=== PATIENT | male | born 1950 | race Caucasian/White ===

== ENCOUNTER 2023-01-11 13:36 | Outpatient (REF) | payer OTHER, SELFPAY ==
--- NOTE | 2023-01-11 10:45 | EMG_ITS ---
Left median and ulnar motor and sensory studies were performed. Left radial sensory study was performed. Paraspinal muscles were tested with a needle. IMPRESSION: 1. 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 2. Mild left ulnar neuropathy across cubital tunnel. MD JESSE Tirado/JENNYFER / [id number]
== END 2023-01-11 13:37 | disposition home or self-care (01) ==
LOC: HO.NEURO 13:36
PROVIDERS: PCP Internal Medicine Geriatric Medicine; Visit Provider Internal Medicine Geriatric Medicine
DX: R20.0 Anesthesia of skin (principal); R20.2 Paresthesia of skin
CPT/HCPCS: 95886; 95909

== ENCOUNTER 2023-03-13 11:46 | Outpatient (REF) | payer OTHER, SELFPAY ==
--- NOTE | ~2023-03-13 | XR_ITS ---
EXAMINATION: XR LUMBOSACRAL SPINE CLINICAL INFORMATION: Fall with hip and back pain COMPARISON: None available. TECHNIQUE: Three views of the lumbosacral spine. FINDINGS: No fracture or subluxation. Vertebral body height and alignment maintained. Diffuse disc space narrowing with endplate osteophytes and vacuum disc phenomenon. Facet arthropathy at the lower lumbar spine. The sacroiliac joints appear symmetric. The sacrum appears intact. Normal bowel gas pattern. XR/XR lumbar spine 2-3V IMPRESSION: No acute fracture or malalignment. Moderate multilevel degenerative changes.
--- NOTE | ~2023-03-13 | XR_ITS ---
EXAMINATION: XR BILATERAL HIPS WITH AP PELVIS CLINICAL INFORMATION: Fall with bilateral hip pain COMPARISON: None available. TECHNIQUE: 2 views of each hip FINDINGS: There is no fracture or dislocation. The hips are well aligned. Mild joint space narrowing of both hips with subchondral sclerosis and small osteophytes. The visualized pelvis is intact. The pubic symphysis is well aligned. Vascular calcifications are noted. Nonobstructive bowel gas pattern. XR/XR hips TOD min 3V IMPRESSION: No fracture or malalignment. Mild degenerative changes of both hips.
== END 2023-03-13 11:47 | disposition home or self-care (01) ==
LOC: HO.XRAY 11:46
PROVIDERS: Absent Provider Internal Medicine Geriatric Medicine; PCP Internal Medicine Geriatric Medicine; Visit Provider Registered Nurse
DX: M79.18 Myalgia, other site (principal); M25.551 Pain in right hip; M25.552 Pain in left hip; W10.0XXD Fall (on)(from) escalator, subsequent encounter
CPT/HCPCS: 72100; 73522

== ENCOUNTER 2023-08-28 11:29 | Outpatient (REF) | payer OTHER, SELFPAY ==
[2023-08-28 14:10] LABS: Anion Gap 11 (12-20); Blood Urea Nitrogen 17 mg/dL (9-16); Carbon Dioxide 28 mmol/L (22-29); Chloride 104 mmol/L (96-108); Estimated Glomerular Filt Rate > 60; Glucose Random 174 mg/dL (60-115); Sodium 139 mmol/L (135-145)
[2023-08-28 14:12] LABS: HIV AB/AG Nonreactive (Nonreactive); HIV Num 1 0.05 S/CO (0.00-0.99)
== END 2023-08-28 11:30 | disposition home or self-care (01) ==
LOC: HO.HHCL 11:29
PROVIDERS: Visit Provider Internal Medicine Geriatric Medicine
DX: E11.9 Type 2 diabetes mellitus without complications (principal); Z11.4 Encounter for screening for human immunodeficiency virus [HIV]
CPT/HCPCS: 36415; 80048; 87389

== ENCOUNTER 2023-11-01 13:10 | Outpatient (REF) | payer OTHER, SELFPAY ==
--- NOTE | ~2023-11-01 | XR_ITS ---
EXAMINATION: XR BILATERAL HIPS WITH AP PELVIS CLINICAL INFORMATION: Status post fall 11/06/2023 COMPARISON: None available. TECHNIQUE: AP view of the pelvis and single views of each hip were obtained. FINDINGS: No fracture. Hip joint spaces are maintained. Alignment is anatomic. Sacroiliac joints and pubic symphysis are normal. Extensive vascular calcification is seen. There is degenerative disc disease at L4-L5. XR/XR hip BI w PEL1V IMPRESSION: No acute bony abnormality.
== END 2023-11-01 13:11 | disposition home or self-care (01) ==
LOC: HO.HHCX 13:10
PROVIDERS: Visit Provider Registered Nurse
DX: M79.18 Myalgia, other site (principal); M51.36 Other intervertebral disc degeneration, lumbar region; Z91.81 History of falling
CPT/HCPCS: 73521

== ENCOUNTER 2023-11-27 11:23 | Outpatient (REF) | payer OTHER, SELFPAY ==
[2023-11-27 13:19] LABS: MANUAL DIFF FLAG NO
[2023-11-27 13:36] LABS: Basophils Percent Auto 0.6 % (0-2); Eosinophils Absolute Auto 0.1 X10*3/uL (0.0-0.4); Eosinophils Percent Auto 3.3 % (0-4); Hematocrit 42.5 % (42.0-52.0); Hemoglobin 14.2 g/dl (14.0-18.0); Imm Gran Abs Auto 0.01 X10*3/uL (0.00-0.03); Imm Gran Pct Auto 0.3 % (0.0-0.4); Lymphocytes Absolute Auto 0.9 X10*3/uL (1.2-4.9); Lymphocytes Percent Auto 27.3 % (20-40); Mean Corpuscular HGB Conc 33.4 g/dl (31.0-36.0); Mean Corpuscular Hemoglobin 27.7 pg (27.0-33.0); Mean Corpuscular Volume 82.8 fL (80.0-98.0); Mean Platelet Volume 10.4 fL (9.4-12.4); Monocytes Absolute Auto 0.5 X10*3/uL (0.1-1.2); Monocytes Percent Auto 14.5 % (2-11); Neutrophils Absolute Auto 1.8 x10*3/uL (2.0-8.3); Platelet Count 207 X10*3/uL (160-400); Red Blood Count 5.13 X10*6/uL (4.60-5.80); Red Cell Distribution Width 13.2 % (11.0-16.0); White Blood Count 3.3 X10*3/uL (4.8-10.8)
[2023-11-27 14:04] LABS: Alanine Aminotransferase 17 U/L (0-40); Albumin Level 4.3 g/dL (3.5-5.0); Alkaline Phosphatase 86 U/L (39-117); Anion Gap 10 (12-20); Aspartate Amino Transferase 16 U/L (5-37); Bilirubin Total 0.5 mg/dL (0.0-1.0); Blood Urea Nitrogen 19 mg/dL (9-16); Calcium 9.2 mg/dL (8.4-10.2); Carbon Dioxide 26 mmol/L (22-29); Chloride 105 mmol/L (96-108); Estimated Glomerular Filt Rate > 60; Glucose Random 277 mg/dL (60-115); Potassium 4.1 mmol/L (3.3-5.1); Sodium 137 mmol/L (135-145); Total Protein 6.8 g/dL (6.5-8.0)
[2023-11-27 14:11] LABS: TSH reflex Free T4 1.16 uIU/mL (0.32-4.0)
[2023-11-28 05:49] LABS: HIV AB/AG Nonreactive (Nonreactive); HIV Num 1 0.05 S/CO (0.00-0.99)
== END 2023-11-27 11:24 | disposition home or self-care (01) ==
LOC: HO.HHCL 11:23
PROVIDERS: Visit Provider Internal Medicine Geriatric Medicine
DX: E11.59 Type 2 diabetes mellitus with other circulatory complications (principal); I25.10 Atherosclerotic heart disease of native coronary artery without angina pectoris; R63.4 Abnormal weight loss
CPT/HCPCS: 36415; 80053; 84443; 85025; 87389

== ENCOUNTER 2024-06-06 10:02 | Outpatient (REF) | payer OTHER, SELFPAY ==
[2024-06-06 12:09] LABS: Prostate Specific Antigen 0.27 ng/mL (<0.05-4.0)
[2024-06-11 12:38] LABS: Testosterone, Total 490 ng/dL (250-1100)
== END 2024-06-06 10:03 | disposition home or self-care (01) ==
LOC: HO.HHCL 10:02
PROVIDERS: Visit Provider Internal Medicine Geriatric Medicine
DX: Z12.5 Encounter for screening for malignant neoplasm of prostate (principal); R68.82 Decreased libido
CPT/HCPCS: 36415; 84153; 84403

== ENCOUNTER 2024-08-28 10:52 | Outpatient (REF) | payer OTHER, SELFPAY ==
[2024-08-28 13:58] LABS: Alanine Aminotransferase 21 U/L (0-40); Albumin Level 4.4 g/dL (3.5-5.0); Alkaline Phosphatase 68 U/L (39-117); Anion Gap 12 (12-20); Aspartate Amino Transferase 26 U/L (5-37); Bilirubin Total 0.6 mg/dL (0.0-1.0); Blood Urea Nitrogen 21 mg/dL (9-16); Calcium 9.5 mg/dL (8.4-10.2); Carbon Dioxide 27 mmol/L (22-29); Chloride 105 mmol/L (96-108); Cholesterol 118 mg/dL (<200); Estimated Glomerular Filt Rate > 60; Glucose Random 161 mg/dL (60-115); HDL Cholesterol 43 mg/dL (>40); LDL Cholesterol Calculated 59 mg/dL (<100); Potassium 4.1 mmol/L (3.3-5.1); Sodium 140 mmol/L (135-145); Total Protein 6.7 g/dL (6.5-8.0); Triglycerides 82 mg/dL (<150)
[2024-08-28 14:28] LABS: Creatinine Urine 82.11 mg/dL; Microalbum/Creatinine Ratio Ur 30.4 ug/mg cr (<30)
== END 2024-08-28 10:53 | disposition home or self-care (01) ==
LOC: HO.HHCL 10:52
PROVIDERS: Visit Provider Internal Medicine Geriatric Medicine
DX: E11.59 Type 2 diabetes mellitus with other circulatory complications (principal)
CPT/HCPCS: 36415; 80053; 80061; 82043; 82570

== ENCOUNTER 2025-05-27 09:09 | Outpatient (AMB) | payer OTHER, SELFPAY ==
--- NOTE | 2025-05-27 09:27 | A.OFFVIS_ITS ---
Vital Signs 05/27/25 09:28 Height 5 ft 8 in Weight 145 lb BMI 22.0 BP 163/76 H Blood Pressure Location Rt brachial Position Sitting Respiration 16 Pulse 65 Pulse Source Pulse Oximeter Pulse Oximetry (%) 97 Oxygen Delivery Method Room Air Intake Visit Reasons: CHRONIC BILATERAL LOW BACK PAIN Chemical Plant Operator Supervisor Required: Yes Chemical Plant Operator Supervisor Name: Vanesa Cano [phone] Accompanied by: Self / Same As Patient Allergies No Known Allergies Allergy (Verified 05/27/25 09:30) HPI Comments Details: The patient is a 74-year-old male presenting with chronic low back pain. The pain has been persistent for many years, initially localized to the lower back and now radiating to the right leg. The patient reports numbness and tingling in the right foot, which exacerbates with walking and alleviates with rest. Denies red flag symptoms including new loss of bowel, bladder or saddle anesthesia. The patient underwent back surgery approximately 14 to 15 years ago in [place], [place]. He has not engaged in physical therapy for several years and currently uses oxycodone for pain management, which provides temporary relief. Patient also taking Tylenol and ibuprofen as needed but pain persists. - Onset: Pain has been present for many years. - Quality: Radiating pain from the lower back to the right leg. - Location: Middle of the lower back, radiating to the right leg and foot. - Exacerbating factors: Walking increases pain. - Relieving factors: Rest provides some relief. - Affect: Pain impacts daily activities, requiring assistance with walking. - Analgesia: Currently using oxycodone for pain relief, which provides temporary relief. Also taking Tylenol and ibuprofen. - Adverse Effects: No adverse effects from current medication reported. - Activities of Daily Living: Pain limits walking and requires the use of a cane. - Aberrant Drug Related Behaviors: No aberrant behaviors reported. Review of Systems Const Details: - Musculoskeletal: Reports chronic low back pain radiating to the right leg. - Neurological: Reports numbness and tingling in the right foot. - Renal: Denies any history of kidney problems. Physical Exam Exam Exam: General: awake, alert, oriented. Answers questions appropriately. Fully engaged in examination. Skin: warm, dry, intact HEENT: Normocephalic. Hearing intact. Cardiac: External chest normal in appearance. Respiratory: No cough, audible wheezing or stridor. Abdomen: without gross distension. MS: No obvious swelling or deformities. Able to stand on bilateral tiptoes and bilateral heels.? Able to transition from sit to stand unassisted. Ambulates with bilaterally normal heel strike and toe off Tenderness over midline lumbar vertebrae and lumbar paraspinal muscles, right greater than left. SLR positive on the right Bilateral lower extremity strength 5/5 Nontender over bilateral PSIS Neurological: Oriented to person, place, time and situation. Thought process intact. Antalgic gait. He ambulates with the use of a cane. Psychiatric: Appropriate mood and affect. Good judgment and insight. Vital Signs: Last Vital Signs Pulse 65 05/27/25 09:28 Resp 16 05/27/25 09:28 BP 163/76 H 05/27/25 09:28 Pulse Ox 97 05/27/25 09:28 Oxygen Delivery Method Room Air 05/27/25 09:28 BMI result Body Mass Index 22.0 Results Reviewed Results Reviewed: 03/13/23 XR/XR lumbar spine 2-3V FINDINGS: No fracture or subluxation. Vertebral body height and alignment maintained. Diffuse disc space narrowing with endplate osteophytes and vacuum disc phenomenon. Facet arthropathy at the lower lumbar spine. The sacroiliac joints appear symmetric. The sacrum appears intact. Normal bowel gas pattern. IMPRESSION: No acute fracture or malalignment. Moderate multilevel degenerative changes. Assessment & Plan Assessment & Plan (1) Lumbar spondylosis: Code(s): M47.816 - Spondylosis without myelopathy or radiculopathy, lumbar region Category: Medical (2) Post laminectomy syndrome: Code(s): M96.1 - Postlaminectomy syndrome, not elsewhere classified Category: Medical (3) Lumbar radiculopathy: Code(s): M54.16 - Radiculopathy, lumbar region Category: Medical (4) Chronic pain syndrome: Code(s): G89.4 - Chronic pain syndrome Category: Medical Plan The plan includes ordering a new x-ray to assess the current state of the patie nt's spine. Physical therapy is recommended to improve mobility and manage pain, with a follow-up to assess progress after therapy. If physical therapy does not yield significant improvement, an MRI will be considered to further evaluate the condition. Patient requests physical therapy be ordered in [place] due to proximity to his home. The patient will continue using oxycodone for pain management as prescribed by PCP, and topical patches will be prescribed to provide additional relief. I discussed with the patient the plan to order a new x-ray and the potential for physical therapy to improve his condition. We also talked about the possibility of an MRI if physical therapy does not help, and the use of topical patches for additional pain relief. Patient was informed and verbally consented to the use of an ambient scribe for clinic note documentation during this visit. Orders: Orders XR lumbar spine 6V w bending Today M54.9 - Dorsalgia, unspecified PT Evaluation and Treatment Today M47.816 - Spondylosis without myelopathy or radiculopathy, lumbar region, M54.16 - Radiculopathy, lumbar region, M96.1 - Postlaminectomy syndrome, not elsewhere classified Medications: New 2 camphor-methyl salicyl-menthol 3.1 %-10 %-6 % (large) (Salonpas) may leave on for up to 12 hrs 1 patch topical DAILY 6 ea 6RF Patient Instructions: - Schedule and complete the x-ray - Begin physical therapy sessions as recommended. - Continue taking oxycodone as prescribed by her PCP for pain management. Con tinue Motrin as needed. - Apply the prescribed topical patches to the affected area. - Follow up after completing physical therapy to assess progress. Coding Level of Care Code New Pt Level 4 (77412) Complex EM visit Add On G2211 Diagnoses Lumbar spondylosis M47.816 Post laminectomy syndrome M96.1 Lumbar radiculopathy M54.16 Chronic pain syndrome G89.4
[2025-05-27 09:28] VITALS: BP 163/76; PULSE 65; RESP 16; O2SAT 97; BMI 22.0
--- OUTSIDE RECORDS SUMMARY | 2025-05-27 09:37 | XMS_ITS | Clinical Summary ---
Author Organization [facility] Address [address] [place] [address] Care Team Providers Care Book Jacket Cover Machine Operator Name Role Phone Name, Sabas MIRANDA Primary Care Provider Surgical History Surgery Date Site/Laterality Comments BACK SURGERY 2007 PROCEDURE: HISTORICAL BACK SURGERY; COMMENT: disc surgery; this was in [place] [facility] COLONOSCOPY 10/18/2010 PROCEDURE: [place] COLONOSCOPY STOMA DX INCLUDING COLLJ SPEC SPX Medical History Medical History Date Comments [place] (obstructive sleep apnea) 06/19/2011 DX :[place] (obstructive sleep apnea) Lumbar disc disease 06/19/2011 DX:Lumbar di sc disease Cataract 09/10/2015 DX:Cataract; COM MENT: OU, early. External eye exam 07/13/2015/ Dr. Rosa CAD (coronary artery disease) 05/19/2014 DX :CAD (coronary artery disease) Type 2 diabetes mellitus wit h cataract ([facility] V24, [facility] V28) 09/10/2015 DX:Type 2 diabetes mellitus with cataract (HCC); COMMENT: Cacatract OU Hyperlipidemia 10/21/2015 DX:Hyperlipidemi a Family History Medical History Relation Name Comments Diabetes Father Other cancer Mother unknown type Relation Name Status Comments Father Mother Social History Tobacco Use Types Packs/Day Years Used Date Smoking Tobacco: Former Smokeless Tobacco: Never Alcohol Use Standard Drinks/Week Comments No 0 (1 standard drink = 0.6 oz pur e alcohol) Sex and Gender Information Value Date Recorded Sex Assigned at Not on file Legal Sex Male 4:53 AM EST Gender Identity Not on file Sexual Orientation Not on file Obstetrics History Last Filed Vital Signs Vital Sign Reading Time Taken Comments Blood Pressure 120/68 11/06/2023 3:26 PM EST R A rm Pulse 75 11/06/2023 3:26 PM EST Temperature - - Respiratory Rate - - Oxygen Saturation - - Inhaled Oxygen Concentration - - Weight - - Height - - Body Mass Index - - Plan of Treatment Health Maintenance Due Date Last Done Comments Diabetes: Annual GFR (Glomerular Filtration Rate) 1948 Diabetes: Annual Foot Exam 1958 Diabetes: Annual Retina Eye Exam 1958 Zoster Vaccines (1 of 2) 1998 Pneumococcal Vaccine: 50+ Years (2 of 2 - PCV) 11/12/2014 11/12/2013 RSV Immunization Adult Patients (1 - 1-dose 75+ series) 2023 DTaP,Tdap,and Td Vaccines (2 - Td or Tdap) 05/19/2024 05/19/2014 Cholesterol Screening (Lipid Panel) 05/27/2024 Diabetes: Annual Urine Albumin-Creatinine Ratio (uACR) 05/27/2024 Diabetes: Blood Sugar Control Test (HGBA1C) 05/27/2024 Falls Risk Assessment 05/27/2024 Hepatitis C Screening 05/27/2024 Hypertension/CHF/CAD Annual BMP Blood Test 05/27/2024 Social Influencers of Health Screening 05/27/2024 COVID-19 Vaccine ( season) 2024 Depression Screening 10/29/2024 Influenza Vaccine (#1) 2025 5, 08/13/2014, 08/12/2013, Additional history exists HIB Vaccines Aged Out No longer eligi ble based on patient's age to complete this topic HPV Vaccines Aged Out No longer eligi ble based on patient's age to complete this topic Hepatitis A Vaccines Aged Out No long er eligible based on patient's age to complete this topic Hepatitis B Vaccines Aged Out No long er eligible based on patient's age to complete this topic IPV Vaccines Aged Out No longer eligi ble based on patient's age to complete this topic MMR Vaccines Aged Out No longer eligi ble based on patient's age to complete this topic Meningococcal ACWY Vaccine Aged Out N o longer eligible based on patient's age to complete this topic Meningococcal B Vaccine Aged Out No l onger eligible based on patient's age to complete this topic RSV Immunization Patients Under 20 months Aged Out No longer eligible based on patient's age to complete this topic Varicella Vaccines Aged Out No longer eligible based on patient's age to complete this topic Care Teams Book Jacket Cover Machine Operator Relationship Specialty Start Date End Date Name, MD Sabas [address] [place], [place] PCP - General Internal Medicine 07/13/10
--- OUTSIDE RECORDS SUMMARY | 2025-05-27 09:37 | XMS_ITS | Encounter Summary ---
Author Organization [employer] Address [address] [place] [address] Care Team Providers Care Clerical Stock Inspector Name Role Phone Name, Sabas MIRANDA Primary Care Provider [phone] Encounter Details Date Type Department Care Team ([facility] st Contact Info) Description 05/08/2024 Telephone [facility] [address] [place] [address] Name, MD Sabas [address] [place], [place] [phone] Social History Tobacco Use Types Packs/Day Years Used Date Smoking Tobacco: Never Smokeless Tobacco: Never Alcohol Use Standard Drinks/Week Comments Never 0 (1 standard drink = 0.6 oz pur e alcohol) Depression Answer Date Recorded Patient Health Questionnaire-9 Score 5 03/03/2024 Patient Health Questionnaire-9 Score 5 03/03/2024 Last PHQ-9: Questionnaire Data Not on file 0 03/03/2024 Housing Stability Answer Date Recorded What is your housing situation today? I have korey quiles 03/03/[address] you li ve. Do you have problems with any of the following? None of the above 03/03/2024 Food Insecurity Answer Date Recorded Within the past 12 months, y ou worried that your food would run out before you got money to buy more: Never True 03/03/2024 Within the past 12 months,th e food you bought just didn't last and you didn't have enough money to get more: Never True 03/2024 Transportation Answer Date Recorded In the past 12 months, has l ack of transportation kept you from medical appts, meetings, work or from getting things needed for daily living? No 03/03/2024 Utilities Answer Date Recorded In the past 12 months, has t he electric, gas, oil or water company threatened to shut off services in your home? No 03/03/2024 Depression Answer Date Recorded Patient Health Questionnaire-2 Score 2 03/03/2024 Sex and Gender Information Value Date Recorded Sex Assigned at Male 08/28/2022 10:29 AM EDT Legal Sex Male 10:29 AM EDT Gender Identity Choose not to disclose 10:29 AM EDT Sexual Orientation Choose not to disclose 2021 10:29 AM EDT documented as of this encounter Plan of Treatment Upcoming Encounters Date Type Department Care Team (Late st Contact Info) Description 06/26/2025 9:00 AM EDT Telemedicine [facility] [address] [place] [address] Christine Corrales RN documented as of this encounter Visit Diagnoses Not on filedocumented in this encounter Additional Health Concerns Assessment Noted Time PHQ-9 Depression Total Score: 5 03/03/20 24 9:53 AM EDT documented as of this encounter Care Teams Clerical Stock Inspector Relationship Specialty Start Date End Date Name, MD Sabas [address] [place] [address] PCP - General Family Medicine 12/28/15 documented as of this encounter
== END 2025-05-27 09:49 | disposition home or self-care (01) ==
PROVIDERS: PCP Internal Medicine Geriatric Medicine; Referring Provider Internal Medicine Geriatric Medicine; Visit Provider Registered Nurse Emergency
DX: M47.816 Spondylosis without myelopathy or radiculopathy, lumbar region (principal); M96.1 Postlaminectomy syndrome, not elsewhere classified; M54.16 Radiculopathy, lumbar region; G89.4 Chronic pain syndrome
CPT/HCPCS: 99204; G2211

== ENCOUNTER → 2025-05-27 09:09 | Outpatient (BNVA) | payer OTHER, SELFPAY | PROVIDERS: PCP Internal Medicine Geriatric Medicine; Referring Provider Internal Medicine Geriatric Medicine; Visit Provider Registered Nurse Emergency | DX: M47.816 Spondylosis without myelopathy or radiculopathy, lumbar region (principal); M96.1 Postlaminectomy syndrome, not elsewhere classified; M54.16 Radiculopathy, lumbar region; G89.4 Chronic pain syndrome | CPT/HCPCS: 99202 ==

== ENCOUNTER 2025-05-28 09:02 | Outpatient (REF) | payer OTHER, SELFPAY ==
--- NOTE | ~2025-05-28 | XR_ITS ---
EXAMINATION: XR LUMBOSACRAL SPINE CLINICAL INFORMATION: M54.9 - Dorsalgia, unspecified COMPARISON: March 13, 2023 TECHNIQUE: 6 views of the lumbar spine, inclusive of flexion and extension views, were obtained. FINDINGS: Mild vascular calcification are visible. There are 5 non-rib bearing lumbar segments. There is subtle retrolisthesis at L3-4 and L4-5 and subtle anterolisthesis at L5-S1 With flexion and extension, there is no sign of instability. T12-L1: There is moderate disc space narrowing with endplate sclerosis and osteophytes L1-L2: There is moderate disc space narrowing with endplate osteophytes. L2-L3: There is moderate disc space narrowing with endplate sclerosis and osteophytes. L3-L4: There is mild disc space narrowing and small anterior osteophytes. L4-L5: There is moderate disc space narrowing with endplate sclerosis and osteophytes. Facet osteophytes are also moderate. L5-S1: There is minimal disc space during. There is facet sclerosis and osteophytes. XR/XR lumbar spine 6V w bending IMPRESSION: Multilevel degenerative disc disease and facet arthropathy is stable to mildly progressed since the prior. Electronically signed by: Ben Bal MD 05/28/2025 10:58 AM EDT
--- OUTSIDE RECORDS SUMMARY | 2025-05-28 09:23 | XMS_ITS | Clinical Summary ---
Author Organization [facility] [[email or web address]] Address [address] [place] [address] Care Team Providers Care Cytopathologist Name Role Phone Name, Sabas MIRANDA Primary Care Provider [phone] Surgical History Surgery Date Site/Laterality Comments BACK SURGERY 2007 PROCEDURE: HISTORICAL BACK SURGERY; COMMENT: disc surgery; this was in [place] [facility] COLONOSCOPY 10/18/2010 PROCEDURE: [place] COLONOSCOPY STOMA DX INCLUDING COLLJ SPEC SPX Medical History Medical History Date Comments [place] (obstructive sleep apnea) 06/19/2011 DX :[place] (obstructive sleep apnea) Lumbar disc disease 06/19/2011 DX:Lumbar di sc disease Cataract 09/10/2015 DX:Cataract; COM MENT: OU, early. External eye exam 07/13/2015/ Dr. Rosa CAD (coronary artery disease) 05/19/2014 DX :CAD (coronary artery disease) Type 2 diabetes mellitus wit h cataract ([facility] V24, [facility] V28) 09/10/2015 DX:Type 2 diabetes mellitus with [...] age to complete this topic Care Teams Cytopathologist Relationship Specialty Start Date End Date Name, MD Sabas [address] [place], [place] PCP - General Internal Medicine 07/13/10
--- OUTSIDE RECORDS SUMMARY | 2025-05-28 09:23 | XMS_ITS | Encounter Summary ---
Author Organization [employer] Address [address] [place] [address] Care Team Providers Care Scoop Operator Name Role Phone Name, Sabas MIRANDA Primary Care Provider [phone] Encounter Details Date Type Department Care Team ([facility] st Contact Info) Description 05/08/2024 Telephone [facility] [address] [place], [place] [phone] Name, MD Sabas [address] [place], [place] [phone] Social History Tobacco Use Types Packs/Day Years [...] Info) Description 06/26/2025 9:00 AM EDT Telemedicine [facility] [address] [place] [address] Christine Corrales RN documented as of this encounter Visit Diagnoses Not on filedocumented in this encounter Additional Health Concerns Assessment Noted Time PHQ-9 Depression Total Score: 5 03/03/20 24 9:53 AM EDT documented as of this encounter Care Teams Scoop Operator Relationship Specialty Start Date End Date Name, MD Sabas [address] [place] [address] PCP - General Family Medicine 12/28/15 documented as of this encounter
== END 2025-05-28 09:03 | disposition home or self-care (01) ==
LOC: HO.XRAY 09:02
PROVIDERS: PCP Internal Medicine Geriatric Medicine; Visit Provider Registered Nurse Emergency
DX: M54.9 Dorsalgia, unspecified (principal)
CPT/HCPCS: 72114

== ENCOUNTER → 2025-05-28 09:09 | Outpatient (BNV) | payer OTHER, SELFPAY | PROVIDERS: PCP Internal Medicine Geriatric Medicine; Visit Provider Radiology Diagnostic Radiology | DX: M51.369 Other intervertebral disc degeneration, lumbar region without mention of lumbar back pain or lower extremity pain (principal) | CPT/HCPCS: 72114 ==